=== PATIENT | male | born 1945 | race Caucasian/White ===

== ENCOUNTER 2018-09-27 08:58 | Day surgery (SDC) | payer OTHER ==
[2018-09-27] MEDS ORDERED: ATROPINE SULFATE 1 MG/10 ML SYR IVP ONE (09:03)
[2018-09-27] MEDS ORDERED: fentaNYL 100 MCG/2 ML INJ IVP ONE (09:03)
[2018-09-27] MEDS ORDERED: MIDAZOLAM 2 MG/2 ML VIAL IVP ONE (09:03)
[2018-09-27] MEDS ORDERED: NS 500 ML IV ONE (09:03)
[2018-09-27] MEDS ORDERED: BENZOCAINE UNIT DOSE SPRAY HURRICAINE MM ONE (09:03)
--- NOTE | 2018-09-27 09:42 | PDHPUP ---
History & Physical Update H&P update statement: This history and physical update is based on an assessment of the patient which was completed after admission or registration (within 24 hours), but prior to the surgery/procedure. H&P update: H&P reviewed & patient examined, no change in patient's condition since H&P completed H&P changes: Patient seen and examined in the outpatient setting by Dr. Don Storm on September 23, 2018, with atrial flutter noted on holter monitor. No CHF sypmtoms. On Eliquis for at least one month.
[2018-09-27 10:18] LABS: INR 1.62 (0.83-1.16); PROTIME(PATIENT) 18.5 SEC (12.0-15.0)
[2018-09-27] MEDS ORDERED: PROPOFOL 200 MG/20 ML VIAL ONE ×2 (10:35→10:38)
[2018-09-27] MEDS ORDERED: fentaNYL 100 MCG/2 ML INJ IVP PRN (10:37)
[2018-09-27] MEDS ORDERED: NALOXONE HCL 0.4 MG/ML INJ IVP PRN (10:37)
[2018-09-27] MEDS ORDERED: PROMETHAZINE HCL 25 MG/ML INJ IVP PRN (10:37)
[2018-09-27] MEDS ORDERED: ONDANSETRON 4 MG/2 ML VIAL IVP PRN (10:37)
--- NOTE | 2018-09-27 10:37 | PDANEPAE ---
ANE Past Medical History - Cardiovascular History Hx Arrhythmias: Yes - Pulmonary History Hx COPD: No Hx Asthma/Reactive Airway Disease: No Hx Recent Upper Respiratory Infection: No Hx Oxygen in Use at Home: No Hx Sleep Apnea: No ANE Review of Systems Review of Systems: ANE Patient History - Allergies Allergies/Adverse Reactions: No Known Allergies Allergy (Unverified 09/27/18 09:02) - Home Medications Home medications: home medication list seen and reviewed Home Medications: Ambien 5MG (*) 5 mg PO HS 09/27/18 [Last Taken 09/26/18] Eliquis 5 mg PO BID 09/27/18 [Last Taken 09/27/18 02:00] Lipitor 5 mg PO DAILY 09/27/18 [Last Taken 09/26/18] - NPO status NPO Status: no food or drink >8 hours - Anes Hx Anes Hx: no prior problems - Smoking Hx Smoking Status: Former smoker ANE Labs/Vital Signs - Labs Result Diagrams: 09/27/18 09:25 - Vital Signs Height: 183 cm Weight: 65.3 kg ANE Physical Exam - Airway Neck exam: FROM Mallampati Score: Class 2 Mouth exam: normal dental/mouth exam - Pulmonary Pulmonary: no respiratory distress, no rales or rhonchi, clear to auscultation - Cardiovascular Cardiovascular: irregularly irregular - ASA Status ASA Status: III ANE Anesthesia Plan Anesthesia Plan: GA with mask
--- NOTE | 2018-09-27 11:06 | PDTEE1 ---
TAYLOR Cardioversion Procedure Procedure: electrical cardioversion, transesophageal echo Indications: other (atrial flutter with variable conduction) Anticoagulation: eliquis Procedural Details: After consents for (a) sedation, (b) TAYLOR, and (c) cardioversion were signed and placed in the chart, the patient was positioned in the left lateral position to facilitate TAYLOR probe placement. No difficulty with TAYLOR probe placement Preliminary report (1) Grossly normal LVEF (2) Mild asymmetric septal hypertrophy (3) Normal RV size and function (4) Moderate LA dilation (5) Moderate aneurysmal atrial septum - bubble contrast injection without right to left passage noted (6) Moderate mitral regurgitation (7) Trileaflet aortic valve with mild sclerosis, no stenosis. Moderate aortic insufficiency noted (8) Mild tricuspid regurgitation (9) Physiologic pulmonic insufficiency (10) No thrombus to the left atrial appendage Proceed with cardioversion after reassessment of sedation level Synchronized cardioversion attempt #1: 200J Results: normal sinus rhythm Conclusions: successful TAYLOR cardioversion Conclusion Comment: would have patient follow up with cardiology in 1 week ( with ECG). maintain therapy on Eliquis as at present (for minimum of one month) , but given asymptomatic nature of the atrial arrhythmia noted, would consider lifelong therapy.
--- NOTE | 2018-09-27 11:08 | POSTANESTH ---
Post Anesthetic Evaluation Cardiovascular Status: Normal, Stable Respiratory Status: Normal, Stable, Similar to Pre-op Cond. Level of Consciousness/Mental Status: Can Participate in Eval, Mildly Sleepy, Arousable Pain Control: Adequate, Prn Tx Ordered Nausea/Vomiting Control: Adequate, Prn Tx Ordered Complications Possibly Related to Anesthesia: None Noted
--- NOTE | 2018-09-27 11:52 | ECHO ---
[email or web address] [id number] Main: [phone] Echocardiography Examination Transesophageal Name: ASTON CARABALLO MR#: [id number] Study Date: 09/27/2018 Study Time: 10:41 AM Date of : 1945 Age: 72 year(s) Height: ( ) Weight: ( ) BSA: Gender: Male Examination: TAYLOR Contrast: Image Quality: Adequate Rhythm: Atrial fibrillation Heart Rate: 90 bpm BP: 140 mmHg/80 mmHg Indication: Pre Cardioversion Procedure Staff Referring Physician: Missile Inspector Preflight: Reading Physician: Aston Johnson MD Requesting Provider: Ordering Physician: Aston Johnson MD Indication: Pre Cardioversion Acute complication: None Measurements Chambers Label Value Normal Value EF lower range (%) 65 % EF upper range (%) 70 % LVEF visual 65 % Conclusions (1) LVEF was normal (65%) (2) Grossly normal RV size and function (3) Mod to severe LA enlargement - no thormbus to the left atrial appendage (4) Moderate mitral regurgitation with mild annular calcification (5) Trileaflet aortic valve with moderate insufficiency (6) Trivial TR (7) Trivial PI (8) 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 Left Ventricle: The EF is visually estimated to be 65 %. EF range is estimated at 65 % - 70 %. Left Atrium: The left atrium is moderately to severely dilated. No thrombus is identified in the left atrium. Left Atrium Appendage: No thrombus is identified. Mitral Valve: Moderate mitral regurgitation. There is mild mitral calcification. The mitral regurgitant jet is eccentric. Aortic Valve: Mild aortic regurgitation is present. Aortic leaflets exhibit mild calcification. Tricuspid Valve: Trivial tricuspid regurgitation. Pulmonic Valve: Pulmonic leaflets are structurally normal. No significant pulmonic valve regurgitation is evident. Aorta: Mild atheroma in the descending aorta. Exam Details Procedure Ordered: TAYLOR Procedure Status: Routine study Image Quality: Adequate Consent: Risks, alternatives of procedure explained to patient, informed consent obtained Probe Insertion: Attending bulk driver Facility Location: Cardiac Echo 1 (No Signature Object) Patient: ASTON CARABALLO Study Date: 09/27/2018 Page 2 of 2 10:41 AM [id number]
--- NOTE | 2018-09-27 18:55 | CPEKG ---
Test Reason : OPEN Blood Pressure : / mmHG Vent. Rate : 072 BPM Atrial Rate : 300 BPM P-R Int : 247 ms QRS Dur : 095 ms QT Int : 455 ms P-R-T Axes : 260 063 -06 degrees QTc Int : 499 ms Atrial flutter with predominant 4:1 AV block Low voltage, extremity leads Probable anteroseptal infarct, old Nonspecific T abnormalities, inferior leads Confirmed by Hasmukh Scott ([id number]) on 09/27/2018 6:55:23 PM Referred By: Jonas Johnson Confirmed By:Hasmukh Scott
--- NOTE | 2018-09-27 18:56 | CPEKG ---
Test Reason : OPEN Blood Pressure : / mmHG Vent. Rate : 097 BPM Atrial Rate : 097 BPM P-R Int : 183 ms QRS Dur : 096 ms QT Int : 374 ms P-R-T Axes : 051 060 028 degrees QTc Int : 475 ms Sinus rhythm has replaced atrial flutter Low voltage, extremity leads Borderline prolonged QT interval Confirmed by Hasmukh Scott ([id number]) on 09/27/2018 6:55:42 PM Referred By: Jonas Johnson Confirmed By:Hasmukh Scott
== END 2018-09-27 12:00 | disposition home or self-care (01) ==
LOC: FCATH 08:58
PROVIDERS: ATTEND Internal Medicine Cardiovascular Disease
DX: I48.92 Unspecified atrial flutter (principal); I48.91 Unspecified atrial fibrillation; J44.9 Chronic obstructive pulmonary disease, unspecified; Z85.818 Personal history of malignant neoplasm of other sites of lip, oral cavity, and pharynx; Z87.891 Personal history of nicotine dependence
CPT/HCPCS: J0461; J2704

== ENCOUNTER 2018-12-19 07:53 | Day surgery (SDC) | payer OTHER | END 2018-12-19 14:50 | disposition home or self-care (01) | LOC: FSGY 07:53 ==